=== PATIENT | female | born 1945 | race American Indian/Alaskan Native ===

== ENCOUNTER 2019-09-25 06:01 | Emergency (ER) | payer MEDICARE ==
[2019-09-25 06:12] VITALS: BP 165/64
--- NOTE | 2019-09-25 06:55 | Emergency Department Report ---
ED General Adult HPI - General Chief complaint: Fall Stated complaint: FALL/LIP LAC Time Seen by Provider: 09/25/19 06:40 Source: patient, family Mode of arrival: Ambulatory Limitations: Physical Limitation - History of Present Illness Initial comments: This is a 74-year-old female type II diabetic who slipped and fell on the way to the bathroom. She essentially bit her upper lip when she fell. She rinsed it out with Listerine. She states that her hand on the right is a bit sore area in however she denies any other injury. She denies neck or back pain. She denies being dizzy, near syncope or passing out. She describes a simple mechanical slip and fall. She did not yet check her sugar this morning. -: Gradual Location: mouth, right, upper extremity Associated Symptoms: denies other symptoms - Related Data Home Medications Medication Instructions Recorded Confirmed Last Taken Ergocalciferol (Vitamin D2) 1,000 unit PO BID 12/14/14 12/14/14 12/14/14 [Vitamin D2] Insulin NPH Human Isophane 15 unit SQ QAM 12/14/14 12/14/14 12/14/14 [HumuLIN N] Insulin NPH Human Isophane 20 unit SQ QPM 12/14/14 12/14/14 12/13/14 [HumuLIN N] Lisinopril [Zestril TAB] 40 mg PO QDAY 12/14/14 12/14/14 12/14/14 Potassium Chloride [K-Dur] 10 meq PO QDAY 12/14/14 12/14/14 12/14/14 cloNIDine [Catapres] 0.2 mg PO BID 12/14/14 12/14/14 12/14/14 tiZANidine [Zanaflex 4mg TAB] 4 mg PO QDAY PRN 12/14/14 12/14/14 Unknown Previous Rx's Medication Instructions Recorded Last Taken Type Aspirin [Aspirin BABY CHEW TAB] 81 mg PO QDAY #30 tab.chew 12/17/14 Unknown Rx Atorvastatin [Lipitor] 40 mg PO QHS #30 tab 12/17/14 Unknown Rx Clopidogrel [Plavix] 75 mg PO QDAY #30 tablet 12/17/14 Unknown Rx Penicillin V Potassium 500 mg PO TID #14 tablet 09/25/19 Unknown Rx Allergies Allergy/AdvReac Type Severity Reaction Status Date / Time No Known Allergies Allergy Unverified 12/14/14 15:08 ED Review of Systems ROS: Stated complaint: FALL/LIP LAC Other details as noted in HPI Constitutional: denies: chills, fever Eyes: denies: eye pain, eye discharge, vision change ENT: as per HPI. denies: ear pain, throat pain Respiratory: denies: cough, shortness of breath, wheezing Cardiovascular: denies: chest pain, palpitations Endocrine: no symptoms reported Gastrointestinal: denies: abdominal pain, nausea, diarrhea Genitourinary: denies: urgency, dysuria, discharge Musculoskeletal: denies: back pain, joint swelling, arthralgia Skin: denies: rash, lesions Neurological: denies: headache, weakness, paresthesias Psychiatric: denies: anxiety, depression Hematological/Lymphatic: denies: easy bleeding, easy bruising ED Past Medical Hx - Past Medical History Previous Medical History?: Yes Hx Hypertension: Yes Hx Diabetes: Yes Hx Renal Disease: Yes (stage 3/no dialysis) Additional medical history: Sinus bradycardia (heart rate normally in 40s) - Surgical History Past Surgical History?: Yes Additional Surgical History: partial hysterectomy, - Social History Smoking Status: Never Smoker Substance Use Type: None - Medications Home Medications: Home Medications Medication Instructions Recorded Confirmed Last Taken Type Ergocalciferol (Vitamin D2) 1,000 unit PO BID 12/14/14 12/14/14 12/14/14 History [Vitamin D2] Insulin NPH Human Isophane 15 unit SQ QAM 12/14/14 12/14/14 12/14/14 History [HumuLIN N] Insulin NPH Human Isophane 20 unit SQ QPM 12/14/14 12/14/14 12/13/14 History [HumuLIN N] Lisinopril [Zestril TAB] 40 mg PO QDAY 12/14/14 12/14/14 12/14/14 History Potassium Chloride [K-Dur] 10 meq PO QDAY 12/14/14 12/14/14 12/14/14 History cloNIDine [Catapres] 0.2 mg PO BID 12/14/14 12/14/14 12/14/14 History tiZANidine [Zanaflex 4mg TAB] 4 mg PO QDAY PRN 12/14/14 12/14/14 Unknown History Aspirin [Aspirin BABY CHEW TAB] 81 mg PO QDAY #30 tab.chew 12/17/14 Unknown Rx Atorvastatin [Lipitor] 40 mg PO QHS #30 tab 12/17/14 Unknown Rx Clopidogrel [Plavix] 75 mg PO QDAY #30 tablet 12/17/14 Unknown Rx Penicillin V Potassium 500 mg PO TID #14 tablet 09/25/19 Unknown Rx ED Physical Exam - General General appearance: alert, in no apparent distress - Head Head exam: Present: atraumatic, normocephalic - Eye Eye exam: Present: normal appearance - ENT ENT exam: Present: mucous membranes moist, other (puncture wound and abrasion of the upper lip into SQ. Clean) - Neck Neck exam: Present: normal inspection, full ROM. Absent: tenderness, meningismus, lymphadenopathy, thyromegaly - Respiratory Respiratory exam: Present: normal lung sounds bilaterally. Absent: respiratory distress - Cardiovascular Cardiovascular Exam: Present: regular rate, normal rhythm. Absent: systolic murmur, diastolic murmur, rubs, gallop - GI/Abdominal GI/Abdominal exam: Present: soft, normal bowel sounds. Absent: distended, tenderness, guarding, rebound, rigid - Extremities Exam Extremities exam: Present: normal inspection, full ROM, normal capillary refill, other (full range of motion of the right hand no soft tissue swelling no deformity). Absent: tenderness, pedal edema, joint swelling, calf tenderness - Back Exam Back exam: Present: normal inspection. Absent: tenderness, CVA tenderness (R), CVA tenderness (L), muscle spasm, paraspinal tenderness, vertebral tenderness - Neurological Exam Neurological exam: Present: alert, oriented X3, CN II-XII intact. Absent: motor sensory deficit - Psychiatric Psychiatric exam: Present: normal affect, normal mood - Skin Skin exam: Present: warm, dry, intact, normal color. Absent: rash ED Course Vital Signs 09/25/19 09/25/19 06:06 06:42 Temperature 99.0 F Pulse Rate 68 Respiratory 18 16 Rate Blood Pressure 165/64 O2 Sat by Pulse 100 Oximetry - Reevaluation(s) Reevaluation #1: Accu-Chek noted 09/25/19 07:04 Critical care attestation.: If time is entered above; I have spent that time in minutes in the direct care of this critically ill patient, excluding procedure time. ED Disposition Clinical Impression: Puncture wound of lip Qualifiers: Encounter type: initial encounter Qualified Code(s): S01.531A - Puncture wound without foreign body of lip, initial encounter Soft tissue injury of right hand Qualifiers: Encounter type: initial encounter Qualified Code(s): S69.91XA - Unspecified injury of right wrist, hand and finger(s), initial encounter Fall Qualifiers: Encounter type: initial encounter Qualified Code(s): W19.XXXA - Unspecified fall, initial encounter Disposition: TO HOME OR SELFCARE Is pt being admited?: No Does the pt Need Aspirin: No Condition: Stable Instructions: Puncture Wound (ED) Additional Instructions: Saltwater rinses lip wound. Rx penicillin. Follow-up with primary care physician. Return if any further problem. Prescriptions: Penicillin V Potassium 500 mg PO TID #14 tablet Referrals: usual, primary care [Other] - 3-5 Days Time of Disposition: 07:04
== END 2019-09-25 07:40 | disposition home or self-care (01) ==
LOC: ED 06:01
DX: S01.531A Puncture wound without foreign body of lip, initial encounter (principal); S69.91XA Unspecified injury of right wrist, hand and finger(s), initial encounter; E11.22 Type 2 diabetes mellitus with diabetic chronic kidney disease; I12.9 Hypertensive chronic kidney disease with stage 1 through stage 4 chronic kidney disease, or unspecified chronic kidney disease; N18.3 Chronic kidney disease, stage 3 (moderate); W18.30XA Fall on same level, unspecified, initial encounter; Y93.89 Activity, other specified; Y92.89 Other specified places as the place of occurrence of the external cause; Y99.8 Other external cause status
CPT/HCPCS: 82962; 99282

== ENCOUNTER 2020-10-06 23:22 | Observation (INO) | payer OTHER, MEDICARE ==
[2020-10-07] MEDS ORDERED: ASPIRIN 325 MG TAB PO ONE (01:58)
--- NOTE | 2020-10-07 02:33 | XRay Report ---
CHEST 1 VIEW 0227 INDICATION / CLINICAL INFORMATION: Chest Pain COMPARISON: 12/14/2014 FINDINGS: SUPPORT DEVICES: None HEART / MEDIASTINUM: No significant abnormality. LUNGS / PLEURA: No significant pulmonary or pleural abnormality. No pneumothorax. ADDITIONAL FINDINGS: No significant additional findings. IMPRESSION: No significant acute abnormality Signer Name: Galo Bagley MD Signed: 10/07/2020 2:29 AM Workstation Name: [id number]
[2020-10-07 02:48] LABS: Basophils % (Auto) 0.8 % (0.0-1.8); Eosinophils # (Auto) 0.1 K/mm3 (0.0-0.4); Hematocrit 35.7 % (30.3-42.9); Hemoglobin 11.4 gm/dl (10.1-14.3); Lymphocytes # (Auto) 1.3 K/mm3 (1.2-5.4); Lymphocytes % (Auto) 31.4 % (13.4-35.0); Mean Corpuscular HGB Conc 32 % (30-34); Monocytes # (Auto) 0.5 K/mm3 (0.0-0.8); Monocytes % (Auto) 11.5 % (0.0-7.3); Platelet Count 190 K/mm3 (140-440); Red Blood Count 5.14 M/mm3 (3.65-5.03); Red Cell Distribution Width 15.4 % (13.2-15.2)
[2020-10-07 02:51] LABS: Mean Corpuscular Volume 70 fl (79-97)
[2020-10-07] MEDS ORDERED: NITROGLYCERIN 0.4 MG TAB SUBL SL ONE (02:53)
--- NOTE | 2020-10-07 02:55 | Emergency Department Report ---
ED Chest Pain HPI - General Chief Complaint: Chest Pain Stated Complaint: CHEST PAIN WITH HYPERTENSION Time Seen by Provider: 10/07/20 02:31 Source: patient, EMS Mode of arrival: Stretcher Limitations: No Limitations - History of Present Illness Initial Comments: This is a 75-year-old -M[place] female presents to the emergency department via EMS from home with complaint of midsternal, nonradiating, chest pain that has been going on intermittently over the past "couple of days." The patient says that she finally "listen to my sister" and came in for evaluation. She denies any shortness of breath, nausea, vomiting, fever, diaphoresis. She has not taken anything, nor receive anything, for her symptoms prior to presentation. She has a past medical history of hypertension, insulin-dependent diabetes, chronic kidney disease, and a history of bradycardia. She has a primary care physician but has not seen them regarding her symptoms and cannot currently remember their name. 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 She denies any tobacco or illicit drug use. No recent travel or sick contacts at home. No known aggravating or alleviating factors. The patient's chest pain is currently listed as 8 out of 10 in intensity. - Related Data Home Medications Medication Instructions Recorded Confirmed Last Taken Ergocalciferol (Vitamin D2) 1,000 unit PO BID 12/14/14 12/14/14 12/14/14 [Vitamin D2] Insulin NPH Human Isophane 15 unit SQ QAM 12/14/14 12/14/14 12/14/14 [HumuLIN N] Insulin NPH Human Isophane 20 unit SQ QPM 12/14/14 12/14/14 12/13/14 [HumuLIN N] Potassium Chloride [K-Dur] 10 meq PO QDAY 12/14/14 12/14/14 12/14/14 cloNIDine [Catapres] 0.2 mg PO BID 12/14/14 12/14/14 12/14/14 lisinopriL [Zestril TAB] 40 mg PO QDAY 12/14/14 12/14/14 12/14/14 tiZANidine [Zanaflex 4mg TAB] 4 mg PO QDAY PRN 12/14/14 12/14/14 Unknown Previous Rx's Medication Instructions Recorded Last Taken Type Aspirin [Aspirin BABY CHEW TAB] 81 mg PO QDAY #30 tab.chew 12/17/14 Unknown Rx Atorvastatin [Lipitor] 40 mg PO QHS #30 tab 12/17/14 Unknown Rx Clopidogrel [Plavix] 75 mg PO QDAY #30 tablet 12/17/14 Unknown Rx Penicillin V Potassium 500 mg PO TID #14 tablet 09/25/19 Unknown Rx Allergies Allergy/AdvReac Type Severity Reaction Status Date / Time No Known Allergies Allergy Unverified 12/14/14 15:08 Heart Score - HEART Score History: Slightly suspicious EKG: Normal Age: > 65 Risk factors: > 3 risk factors or hx of atherosclerotic disease Troponin: < normal limit HEART Score: 4 - Critical Actions Critical Actions: 0-3 pts:0.9-1.7%risk of adverse cardiac event.Candidate for discharge ED Review of Systems ROS: Stated complaint: CHEST PAIN WITH HYPERTENSION Other details as noted in HPI Comment: All other systems reviewed and negative Constitutional: denies: chills, fever Eyes: denies: eye pain, vision change ENT: denies: ear pain, throat pain Respiratory: denies: cough, shortness of breath Cardiovascular: chest pain. denies: palpitations Gastrointestinal: denies: abdominal pain, vomiting Genitourinary: denies: dysuria, discharge Musculoskeletal: denies: joint swelling, arthralgia Skin: denies: rash, lesions Neurological: denies: headache, weakness ED Past Medical Hx - Past Medical History Previous Medical History?: Yes Hx Hypertension: Yes Hx Diabetes: Yes Hx Renal Disease: Yes (stage 3/no dialysis) Additional medical history: Sinus bradycardia (heart rate normally in 40s) - Surgical History Past Surgical History?: Yes Additional Surgical History: partial hysterectomy, - Social History Smoking Status: Never Smoker - Medications Home Medications: Home Medications Medication Instructions Recorded Confirmed Last Taken Type Ergocalciferol (Vitamin D2) 1,000 unit PO BID 12/14/14 12/14/14 12/14/14 History [Vitamin D2] Insulin NPH Human Isophane 15 unit SQ QAM 12/14/14 12/14/14 12/14/14 History [HumuLIN N] Insulin NPH Human Isophane 20 unit SQ QPM 12/14/14 12/14/14 12/13/14 History [HumuLIN N] Potassium Chloride [K-Dur] 10 meq PO QDAY 12/14/14 12/14/14 12/14/14 History cloNIDine [Catapres] 0.2 mg PO BID 12/14/14 12/14/14 12/14/14 History lisinopriL [Zestril TAB] 40 mg PO QDAY 12/14/14 12/14/14 12/14/14 History tiZANidine [Zanaflex 4mg TAB] 4 mg PO QDAY PRN 12/14/14 12/14/14 Unknown History Aspirin [Aspirin BABY CHEW TAB] 81 mg PO QDAY #30 tab.chew 12/17/14 Unknown Rx Atorvastatin [Lipitor] 40 mg PO QHS #30 tab 12/17/14 Unknown Rx Clopidogrel [Plavix] 75 mg PO QDAY #30 tablet 12/17/14 Unknown Rx Penicillin V Potassium 500 mg PO TID #14 tablet 09/25/19 Unknown Rx ED Physical Exam - General Limitations: No Limitations - Other Other exam information: GENERAL: The patient is well-developed well-nourished. HENT: Normocephalic. Atraumatic. Patient has moist mucous membranes. EYES: Extraocular motions are intact. NECK: Supple. Trachea is midline. CHEST/LUNGS: Clear to auscultation. There is no respiratory distress noted. HEART/CARDIOVASCULAR: Regular. There is mild bradycardia. There is no murmur. ABDOMEN: Abdomen is soft, nontender. Patient has normal bowel sounds. SKIN: Skin is warm and dry. NEURO: The patient is awake, alert, and oriented. The patient is cooperative. The patient has no focal neurologic deficits. Normal speech. MUSCULOSKELETAL: There is no tenderness or deformity. There is no limitation range of motion. ED Course Vital Signs 10/07/20 10/07/20 10/07/20 01:54 03:14 03:28 Temperature 98.2 F Pulse Rate 58 L 54 L Respiratory 20 20 Rate Blood Pressure 250/142 212/89 Blood Pressure [Left] O2 Sat by Pulse 98 Oximetry 10/07/20 10/07/20 10/07/20 03:29 03:30 03:46 Temperature 98.1 F Pulse Rate 52 L 52 L 53 L Respiratory 14 23 13 Rate Blood Pressure 200/83 207/80 Blood Pressure 200/83 [Left] O2 Sat by Pulse 100 99 100 Oximetry 10/07/20 10/07/20 03:59 04:00 Temperature Pulse Rate 49 L 49 L Respiratory 18 Rate Blood Pressure 207/80 202/81 Blood Pressure [Left] O2 Sat by Pulse 100 Oximetry ELLIE score - Ellie Score Age > 65: (1) Yes Aspirin use within the Past 7 Days: (1) Yes 3 or more CAD Risk Factors: (1) Yes 2 or more Angina events in past 24 hrs: (1) Yes Known CAD with more than 50% Stenosis: (0) No Elevated Cardiac Markers: (0) No ST Deviation Greater than 0.5mm: (0) No ELLIE Score: 4 ED Medical Decision Making - Lab Data Result diagrams: 10/07/20 02:04 10/07/20 02:04 Lab Results 10/07/20 10/07/20 Range/Units 02:04 02:04 WBC 4.1 L (4.5-11.0) K/mm3 RBC 5.14 H (3.65-5.03) M/mm3 Hgb 11.4 (10.1-14.3) gm/dl Hct 35.7 (30.3-42.9) % MCV 70 L (79-97) fl MCH 22 L (28-32) pg MCHC 32 (30-34) % RDW 15.4 H (13.2-15.2) % Plt Count 190 (140-440) K/mm3 Lymph % (Auto) 31.4 (13.4-35.0) % [place] % (Auto) 11.5 H (0.0-7.3) % Eos % (Auto) 3.0 (0.0-4.3) % Baso % (Auto) 0.8 (0.0-1.8) % Lymph # (Auto) 1.3 (1.2-5.4) K/mm3 [place] # (Auto) 0.5 (0.0-0.8) K/mm3 Eos # (Auto) 0.1 (0.0-0.4) K/mm3 Baso # (Auto) 0.0 (0.0-0.1) K/mm3 Seg Neutrophils % 53.3 (40.0-70.0) % Seg Neutrophils # 2.2 (1.8-7.7) K/mm3 Sodium 139 (137-145) mmol/L Potassium 4.8 (3.6-5.0) mmol/L Chloride 103.3 (98-107) mmol/L Carbon Dioxide 26 (22-30) mmol/L Anion Gap 15 mmol/L BUN 24 H (7-17) mg/dL Creatinine 1.0 (0.6-1.2) mg/dL Estimated GFR > 60 ml/min BUN/Creatinine Ratio 24 % Glucose 189 H (65-100) mg/dL Calcium 9.4 (8.4-10.2) mg/dL Troponin T < 0.010 (0.00-0.029) ng/mL - EKG Data -: EKG Interpreted by Me EKG shows normal: sinus rhythm, axis, intervals (Prolonged NV interval), QRS complexes (Low voltage), ST-T waves Rate: bradycardia (54 bpm) - EKG Data When compared to previous EKG there are: no significant change Interpretation: unchanged when compared t (12/18/14) - Radiology Data Radiology results: image reviewed interpreted by me: Chest x-ray does not show any acute process. There are no pleural effusions, obvious pneumonia and there is no pneumothorax. No significant cardiomegaly. - Medical Decision Making This patient presents with the complaint of some intermittent midsternal to left-sided chest pain over the past 2 days. EKG shows low voltage QRS and prolonged NV interval, but otherwise no morphology consistent with ST elevation myocardial infarction. Chest x-ray does not show any pneumonia, pleural effusions, pneumothorax, or any other acute process. Labs have been mostly unremarkable including CBC, metabolic panel and a negative troponin x1 thus far. Patient does present with extremely elevated blood pressure. She has been given sublingual nitroglycerin, IV hydralazine, and IV analgesia and the blood pressure has come down to a more reasonable level. She has a moderate heart and ELLIE score. She will be admitted to the hospital for further evaluation and treatment was accepted for admission by the hospitalist, Dr. Eldridge. Critical Care Time: No Critical care attestation.: If time is entered above; I have spent that time in minutes in the direct care of this critically ill patient, excluding procedure time. ED Disposition Clinical Impression: Hypertensive urgency, Acute chest pain Disposition: OP ADMIT IP TO THIS HOSP Is pt being admited?: Yes Condition: Serious Instructions: Chest Pain (ED) Time of Disposition: 03:51
[2020-10-07 02:58] LABS: Calcium 9.4 mg/dL (8.4-10.2); Hemolysis Index 3
[2020-10-07 03:05] LABS: BUN/Creatinine Ratio 24; Blood Urea Nitrogen 24 mg/dL (7-17)
[2020-10-07] MEDS ORDERED: MORPHINE 4 MG/1 ML INJ IV ONE (03:41)
[2020-10-07] MEDS ORDERED: hydrALAZINE 20 MG/1 ML INJ IV ONE (03:41)
[2020-10-07] MEDS ORDERED: ONDANSETRON 4 MG/2 ML INJ IV PRN (04:07)
[2020-10-07] MEDS ORDERED: ACETAMINOPHEN 325 MG TAB PO PRN ×2 (04:07)
[2020-10-07] MEDS ORDERED: DEXTROSE 50% IN WATER (25GM) 50 ML SYRINGE IV PRN (04:07)
[2020-10-07] MEDS ORDERED: NITROGLYCERIN 0.4 MG TAB SUBL SL PRN (04:07)
[2020-10-07] MEDS ORDERED: MORPHINE 2 MG/1 ML INJ IV PRN (04:07)
--- NOTE | 2020-10-07 04:23 | History and Physical Report ---
History of Present Illness Date of examination: 10/07/20 Date of admission: 10/07/2020 Chief complaint: Chest Pain History of present illness: 75-year-old -[place] female with known history of chronic kidney disease,, sinus bradycardia, diabetes mellitus and hypertension presenting to the emergency room today via EMS complaining of chest pain which has been ongoing for the past few days.. Chest pain is said to be midsternal and nonradiating. Patient denies any shortness of breath, no fever or chills, no nausea vomiting and no diaphoresis. There is no known relieving or exacerbating factor for chest pain. Patient denies any sick contacts and no recent travel. Denies any contact with anyone with COVID-19. Patient had a cardiac cath sometime in 2014 but has not followed up with any nursing service administrator. She was evaluated by Dr. Light- [employer] during her visit 5 years ago. She has not followed up with any nursing service administrator lately. Upon arrival in the emergency room today blood pressure was elevated with systolic in the 250s and diastolic in the 140s. She was given some antihypertensive medication in the emergency room with significant improvement in her blood pressure. Patient benign admitted to be evaluated for chest pain and hypertensive urgency. Past History Past Medical History: diabetes, hypertension, renal failure, other (Sinus bradycardia,) Past Surgical History: hysterectomy (Partial hysterectomy) Social history: no significant social history Family history: no significant family history Medications and Allergies Allergies Allergy/AdvReac Type Severity Reaction Status Date / Time No Known Allergies Allergy Unverified 12/14/14 15:08 Home Medications Medication Instructions Recorded Confirmed Last Taken Type Ergocalciferol (Vitamin D2) 1,000 unit PO BID 12/14/14 12/14/14 12/14/14 History [Vitamin D2] Insulin NPH Human Isophane 15 unit SQ QAM 12/14/14 12/14/14 12/14/14 History [HumuLIN N] Insulin NPH Human Isophane 20 unit SQ QPM 12/14/14 12/14/14 12/13/14 History [HumuLIN N] Potassium Chloride [K-Dur] 10 meq PO QDAY 12/14/14 12/14/14 12/14/14 History cloNIDine [Catapres] 0.2 mg PO BID 03/06/15 03/06/15 03/06/15 History lisinopriL [Zestril TAB] 40 mg PO QDAY 12/14/14 12/14/14 12/14/14 History tiZANidine [Zanaflex 4mg TAB] 4 mg PO QDAY PRN 12/14/14 12/14/14 Unknown History Aspirin [Aspirin BABY CHEW TAB] 81 mg PO QDAY #30 tab.chew 12/17/14 Unknown Rx Atorvastatin [Lipitor] 40 mg PO QHS #30 tab 12/17/14 Unknown Rx Clopidogrel [Plavix] 75 mg PO QDAY #30 tablet 12/17/14 Unknown Rx Penicillin V Potassium 500 mg PO TID #14 tablet 09/25/19 Unknown Rx Active Meds: Active Medications Acetaminophen (Acetaminophen 325 Mg Tab) 650 mg PO Q4H PRN PRN Reason: Pain MILD(1-3)/Fever >100.5/STEELE Acetaminophen (Acetaminophen 325 Mg Tab) 650 mg PO Q6H PRN PRN Reason: Pain, Mild (1-3) Aspirin (Aspirin Ec 325 Mg Tab) 325 mg PO QDAY JOSE Dextrose (Dextrose 50% In Water (25gm) 50 Ml Syringe) 50 ml IV Q30MIN PRN; Protocol PRN Reason: Hypoglycemia Dextrose (Dextrose 50% In Water (25gm) 50 Ml Syringe) 50 ml IV Q30MIN PRN; Protocol PRN Reason: Hypoglycemia Insulin Human Lispro (Insulin Lispro 100 Unit/Ml Vial 3 Ml) 0 unit SUB-Q ACHS JOSE; Protocol Morphine Sulfate (Morphine 4 Mg/1 Ml Inj) 2 mg IV Q5MIN PRN PRN Reason: Chest Pain Nitroglycerin (Nitroglycerin 0.4 Mg Tab Subl) 0.4 mg SL Q5M PRN PRN Reason: Chest Pain Ondansetron HCl (Ondansetron 4 Mg/2 Ml Inj) 4 mg IV Q8H PRN PRN Reason: Nausea And Vomiting Sodium Chloride (Sodium Chloride 0.9% 10 Ml Flush Syringe) 10 ml IV BID JOSE Sodium Chloride (Sodium Chloride 0.9% 10 Ml Flush Syringe) 10 ml IV PRN PRN PRN Reason: LINE FLUSH Sodium Chloride (Sodium Chloride 0.9% 10 Ml Flush Syringe) 10 ml IV PRN PRN PRN Reason: LINE FLUSH Review of Systems Constitutional: no fever, no chills Ears, nose, mouth and throat: no nasal congestion, no sore throat Cardiovascular: chest pain, no palpitations Respiratory: no cough, no shortness of breath Gastrointestinal: no abdominal pain, no nausea, no vomiting, no diarrhea Genitourinary Female: no pelvic pain, no flank pain, no dysuria Musculoskeletal: no neck pain, no low back pain Integumentary: no rash, no pruritis Neurological: no headaches, no confusion Psychiatric: no anxiety, no depression Exam - Constitutional Vitals: Temp Pulse Resp BP Pulse Ox 98.1 F 60 18 156/64 100 10/07/20 03:29 10/07/20 04:17 10/07/20 04:17 10/07/20 04:17 10/07/20 04:17 General appearance: Present: no acute distress, well-nourished - EENT Eyes: Present: PERRL, EOM intact. Absent: scleral icterus ENT: hearing intact, clear oral mucosa, dentition normal - Neck Neck: Present: supple, normal ROM - Respiratory Respiratory effort: normal Respiratory: bilateral: CTA - Cardiovascular Rhythm: regular Heart Sounds: Present: S1 & S2. Absent: systolic murmur, diastolic murmur - Extremities Extremities: no ischemia, pulses intact, pulses symmetrical, No edema, normal temperature, normal color, Full ROM Peripheral Pulses: within normal limits - Abdominal General gastrointestinal: Present: soft, non-tender, non-distended, normal bowel sounds. Absent: mass - Integumentary Integumentary: Present: clear, warm, dry. Absent: rash - Musculoskeletal Musculoskeletal: strength equal bilaterally - Psychiatric Psychiatric: appropriate mood/affect, intact judgment & insight, memory intact, cooperative - Neurologic Neurologic: CNII-XII intact, no focal deficits, moves all extremities HEART Score - HEART Score EKG: Normal Age: > 65 Risk factors: > 3 risk factors or hx of atherosclerotic disease Troponin: Troponin T < 0.010 ng/mL (0.00-0.029) 10/07/20 02:04 Troponin: < normal limit - Critical Actions Critical Actions: 0-3 pts:0.9-1.7%risk of adverse cardiac event.Candidate for discharge Results - Labs CBC & Chem 7: 10/07/20 05:16 10/07/20 05:16 Labs: Abnormal lab results 10/07/20 10/07/20 Range/Units 02:04 02:04 WBC 4.1 L (4.5-11.0) K/mm3 RBC 5.14 H (3.65-5.03) M/mm3 MCV 70 L (79-97) fl MCH 22 L (28-32) pg RDW 15.4 H (13.2-15.2) % [place] % (Auto) 11.5 H (0.0-7.3) % BUN 24 H (7-17) mg/dL Glucose 189 H (65-100) mg/dL Assessment and Plan - Patient Problems (1) Acute chest pain Current Visit: Yes Status: Acute Plan to address problem: Patient admitted and placed on telemetry. Will check serial cardiac enzymes. Will place on aspirin, sublingual nitroglycerin and IV morphine as needed for chest pain. We will place consult for cardiology evaluation. Patient seen by [place] heart team during her previous visit. (2) Hypertensive urgency Current Visit: Yes Status: Acute Plan to address problem: We will resume patient's routine home medications once reconciled and monitor vital signs closely. (3) Diabetes mellitus Current Visit: No Status: Chronic Plan to address problem: We will monitor Accu-Cheks closely. (4) DVT prophylaxis Current Visit: No Status: Acute Plan to address problem: Patient placed on subcutaneous Lovenox. (5) Full code status Current Visit: Yes Status: Acute Plan to address problem: Patient is a full code.
[2020-10-07 05:58] LABS: Basophils % (Auto) 0.6 % (0.0-1.8); Eosinophils # (Auto) 0.1 K/mm3 (0.0-0.4); Eosinophils % (Auto) 2.9 % (0.0-4.3); Hematocrit 35.6 % (30.3-42.9); Hemoglobin 11.6 gm/dl (10.1-14.3); Lymphocytes # (Auto) 1.5 K/mm3 (1.2-5.4); Lymphocytes % (Auto) 32.6 % (13.4-35.0); Mean Corpuscular HGB Conc 33 % (30-34); Monocytes # (Auto) 0.5 K/mm3 (0.0-0.8); Monocytes % (Auto) 10.3 % (0.0-7.3); Platelet Count 187 K/mm3 (140-440); Red Blood Count 5.16 M/mm3 (3.65-5.03); Red Cell Distribution Width 15.7 % (13.2-15.2)
[2020-10-07 06:09] LABS: Mean Corpuscular Volume 69 fl (79-97)
[2020-10-07 06:12] LABS: BUN/Creatinine Ratio 23; Blood Urea Nitrogen 23 mg/dL (7-17); Calcium 9.5 mg/dL (8.4-10.2); Hemolysis Index 1
[2020-10-07 06:15] LABS: Chol/HDL Ratio 5.5 %
[2020-10-07] MEDS ORDERED: REGADENOSON 0.4 MG/5 ML INJ IV ONE (07:55)
[2020-10-07] MEDS ORDERED: tiZANidine TAB 4 MG TAB PO PRN (08:49)
[2020-10-07] MEDS: INSULIN LISPRO 100 UNIT/ML VIAL 3 mL SUB-Q SCH ×4 (08:56→22:14)
[2020-10-07] MEDS ORDERED: LISINOPRIL 40 MG TAB PO SCH (10:00)
[2020-10-07] MEDS ORDERED: cloNIDine 0.2 MG TAB PO SCH (10:00)
--- NOTE | 2020-10-07 12:22 | Consultation ---
History of Present Illness Consult date: 10/07/20 Consult reason: chest pain History of present illness: Patient is a 75-year-old woman with a history of hypertension, who presents to the hospital with uncontrolled hypertension and asymptomatic, poorly characterized nonexertional chest pain. Her blood pressure was 250 systolic on presentation. Cardiology consultation was requested for chest pain assessment. It will be noted that the patient has undergone extensive previous cardiac ischemic work-up including a cardiac catheterization 4 years ago that demonstrated mild nonobstructive atherosclerosis, normal left ventricular ejection fraction of 70%. EKG is a sinus bradycardia 54, nonspecific T wave flattening, no acute ischemic changes. Today, she underwent a Lexiscan thallium stress test ordered by the medical service, that showed normal myocardial perfusion, left ventricular ejection fraction 69%. Past History Past Medical History: diabetes, hypertension, renal failure Past Surgical History: hysterectomy (Partial hysterectomy) Social history: no significant social history Family history: no significant family history Medications and Allergies Allergies Allergy/AdvReac Type Severity Reaction Status Date / Time No Known Allergies Allergy Unverified 12/14/14 15:08 Home Medications Medication Instructions Recorded Confirmed Last Taken Type Ergocalciferol (Vitamin D2) 1,000 unit PO BID 12/14/14 12/14/14 12/14/14 History [Vitamin D2] Insulin NPH Human Isophane 15 unit SQ QAM 12/14/14 12/14/14 12/14/14 History [HumuLIN N] Insulin NPH Human Isophane 20 unit SQ QPM 12/14/14 12/14/14 12/13/14 History [HumuLIN N] Potassium Chloride [K-Dur] 10 meq PO QDAY 12/14/14 12/14/14 12/14/14 History cloNIDine [Catapres] 0.2 mg PO BID 12/14/14 12/14/14 12/14/14 History lisinopriL [Zestril TAB] 40 mg PO QDAY 12/14/14 12/14/14 12/14/14 History tiZANidine [Zanaflex 4mg TAB] 4 mg PO QDAY PRN 12/14/14 12/14/14 Unknown History Aspirin [Aspirin BABY CHEW TAB] 81 mg PO QDAY #30 tab.chew 12/17/14 Unknown Rx Atorvastatin [Lipitor] 40 mg PO QHS #30 tab 03/09/15 Unknown Rx Clopidogrel [Plavix] 75 mg PO QDAY #30 tablet 12/17/14 Unknown Rx Penicillin V Potassium 500 mg PO TID #14 tablet 09/25/19 Unknown Rx Active Meds: Active Medications Acetaminophen (Acetaminophen 325 Mg Tab) 650 mg PO Q4H PRN PRN Reason: Pain MILD(1-3)/Fever >100.5/STEELE Aspirin (Aspirin Ec 325 Mg Tab) 325 mg PO QDAY [facility] Atorvastatin Calcium (Atorvastatin 40 Mg Tab) 40 mg PO QHS [facility] Clonidine HCl (Clonidine 0.2 Mg Tab) 0.2 mg PO BID [facility] Clopidogrel Bisulfate (Clopidogrel 75 Mg Tab) 75 mg PO QDAY [facility] Dextrose (Dextrose 50% In Water (25gm) 50 Ml Syringe) 0 ml IV Q30MIN PRN; Protocol PRN Reason: Hypoglycemia Insulin Human Lispro (Insulin Lispro 100 Unit/Ml Vial 3 Ml) 0 unit SUB-Q ACHS [facility]; Protocol Last Admin: 10/07/20 08:56 Dose: Not Given Documented by: Lisinopril (Lisinopril 40 Mg Tab) 40 mg PO QDAY [facility] Morphine Sulfate (Morphine 2 Mg/1 Ml Inj) 2 mg IV Q5MIN PRN PRN Reason: Chest Pain Nitroglycerin (Nitroglycerin 0.4 Mg Tab Subl) 0.4 mg SL Q5M PRN PRN Reason: Chest Pain Ondansetron HCl (Ondansetron 4 Mg/2 Ml Inj) 4 mg IV Q8H PRN PRN Reason: Nausea And Vomiting Sodium Chloride (Sodium Chloride 0.9% 10 Ml Flush Syringe) 10 ml IV BID JOSE Sodium Chloride (Sodium Chloride 0.9% 10 Ml Flush Syringe) 10 ml IV PRN PRN PRN Reason: LINE FLUSH Tizanidine HCl (Tizanidine Tab 4 Mg Tab) 4 mg PO QDAY PRN PRN Reason: Muscle Spasm Review of Systems Cardiovascular: chest pain, no orthopnea, no palpitations, no rapid/irregular heart beat, no edema, no syncope, no lightheadedness, no shortness of breath Physical Examination Vital Signs Temp Pulse Resp BP Pulse Ox 98.2 F 58 L 20 250/142 98 10/07/20 01:54 10/07/20 01:54 10/07/20 01:54 10/07/20 01:54 10/07/20 01:54 General appearance: no acute distress HEENT: Positive: PERRL Neck: Positive: neck supple Cardiac: Positive: Reg Rate and Rhythm Lungs: Positive: clear to auscultation Neuro: Positive: Grossly Intact Abdomen: Positive: Soft Female genitourinary: deferred Skin: Positive: Clear Extremities: Absent: edema Results 10/07/20 05:16 10/07/20 05:16 Lipids 10/07/20 Range/Units 05:16 Triglycerides 260 H (2-149) mg/dL Cholesterol 286 H (50-199) mg/dL HDL Cholesterol 52 (40-59) mg/dL Cholesterol/HDL Ratio 5.50 % CBC 10/07/20 10/07/20 Range/Units 02:04 05:16 WBC 4.1 L 4.6 (4.5-11.0) K/mm3 RBC 5.14 H 5.16 H (3.65-5.03) M/mm3 Hgb 11.4 11.6 (10.1-14.3) gm/dl Hct 35.7 35.6 (30.3-42.9) % Plt Count 190 187 (140-440) K/mm3 Lymph # (Auto) 1.3 1.5 (1.2-5.4) K/mm3 [place] # (Auto) 0.5 0.5 (0.0-0.8) K/mm3 Eos # (Auto) 0.1 0.1 (0.0-0.4) K/mm3 Baso # (Auto) 0.0 0.0 (0.0-0.1) K/mm3 Comprehensive Metabolic Panel 10/07/20 10/07/20 Range/Units 02:04 05:16 Sodium 139 140 (137-145) mmol/L Potassium 4.8 3.8 D (3.6-5.0) mmol/L Chloride 103.3 104.5 (98-107) mmol/L Carbon Dioxide 26 28 (22-30) mmol/L BUN 24 H 23 H (7-17) mg/dL Creatinine 1.0 1.0 (0.6-1.2) mg/dL Glucose 189 H 123 H (65-100) mg/dL Calcium 9.4 9.5 (8.4-10.2) mg/dL EKG interpretations - Telemetry EKG Rhythm: Sinus Bradycardia Assessment and Plan - Patient Problems (1) Chest pain Current Visit: No Status: Acute Plan to address problem: Chest pain is atypical, she had a negative cardiac catheterization 4 years ago, underwent a Lexiscan thallium stress test today, normal myocardial perfusion. (2) Hypertensive urgency Current Visit: Yes Status: Acute Plan to address problem: We will optimize antihypertensive medical therapy and adjust medications as tolerated prior to discharge
[2020-10-07] MEDS ORDERED: LISINOPRIL 20 MG TAB ONE (13:54)
[2020-10-07] MEDS: CLOPIDOGREL 75 MG TAB PO SCH (15:03)
--- NOTE | 2020-10-07 20:18 | Event Note ---
Date: 10/07/20 Patient was admitted this morning with hypertensive urgency and chest pain Evaluated by cardiology, patient had negative stress test today We will closely monitor the patient and adjust the management as needed Possible discharge home tomorrow if stable and cleared by cardiology Plan of care reviewed with the patient and her nurse
--- NOTE | 2020-10-07 20:42 | Treadmill Report ---
THALLIUM STRESS TEST LEFT VENTRICLE: Left ventricular chamber size is within normal spread. Perfusion study demonstrates homogeneous uptake of the tracer in all segments, no defects identified. Gated analysis demonstrates normal left ventricular systolic function, ejection fraction of 69%. CONCLUSION: Normal myocardial perfusion study. JOB# [id number] CA/NTS
[2020-10-07] MEDS ORDERED: cloNIDine 0.1 MG TAB PO SCH (22:00)
[2020-10-07] MEDS ORDERED: INSULIN LISPRO 100 UNIT/ML SUB-Q ONE (22:00)
[2020-10-07] MEDS: hydrALAZINE 25 MG TAB PO SCH (22:12)
[2020-10-08] MEDS: hydrALAZINE 25 MG TAB PO SCH (06:01)
[2020-10-08 06:05] LABS: Basophils % (Auto) 0.4 % (0.0-1.8); Eosinophils # (Auto) 0.1 K/mm3 (0.0-0.4); Eosinophils % (Auto) 2.8 % (0.0-4.3); Hematocrit 32.9 % (30.3-42.9); Hemoglobin 10.5 gm/dl (10.1-14.3); Lymphocytes # (Auto) 1.5 K/mm3 (1.2-5.4); Lymphocytes % (Auto) 30.1 % (13.4-35.0); Mean Corpuscular HGB Conc 32 % (30-34); Monocytes # (Auto) 0.5 K/mm3 (0.0-0.8); Monocytes % (Auto) 10.7 % (0.0-7.3); Platelet Count 172 K/mm3 (140-440); Red Blood Count 4.79 M/mm3 (3.65-5.03); Red Cell Distribution Width 15.7 % (13.2-15.2)
[2020-10-08 06:10] LABS: Mean Corpuscular Volume 69 fl (79-97)
[2020-10-08 06:11] LABS: INR 1.1 (0.87-1.13)
[2020-10-08 06:16] LABS: Calcium 9.1 mg/dL (8.4-10.2)
[2020-10-08] MEDS: INSULIN LISPRO 100 UNIT/ML VIAL 3 mL SUB-Q SCH (07:30)
[2020-10-08] MEDS ORDERED: ASPIRIN EC 325 MG TAB PO SCH (10:00)
[2020-10-08] MEDS: CLOPIDOGREL 75 MG TAB PO SCH (10:20)
--- NOTE | 2020-10-08 10:58 | Discharge Summary ---
Providers - Providers Date of Admission: 10/07/20 03:51 Attending physician: BRANDON CALHOUN 10/07/20 Consult to Cardiac Rehabilitation [CONS] Routine Reason For Exam: Phase I 10/07/20 04:11 Consult to Cardiology [CONS] Routine Consulting Provider: JUSTINO GRIFFIN Reason For Exam: chest pain Consult to Dietitian/Nutrition [CONS] Routine Physician Instructions: Reason For Exam: Reason for Consult: Diet education Hospitalization Condition: Serious Hospital course: This is a 75-year-old -Russian female with chronic kidney disease, sinus bradycardia, diabetes mellitus and hypertension who presents to the emergency department on 10/07 with complaints of midsternal nonradiating chest pain which has been ongoing for the past few days prior to presentation without associated shortness of breath, nausea, vomiting or diaphoresis and no deviating or exacerbating factors. Patient had a cardiac catheterization in but has not followed up with a materials management clerk and she was last seen by Dr. Griffin 5 years ago. Upon arrival to the ED patient's blood pressure was noted to be in the 250s over 140s and she was given antihypertensives much improvement to her blood pressure. Patient was admitted to the hospital service for evaluation of her chest pain and hypertensive urgency. Cardiology was consulted. Patient underwent a thallium stress test on 10/07 which showed a normal myocardial perfusion study with ejection fraction of 69%. Her echocardiogram on 10/07 showed normal global left ventricular systolic function, estimated ejection fraction of 60 to 65% with mild concentric left ventricular hypertrophy and no significant MR and trace TR. On 10/08 she was noted to be bradycardic overnight and her antihypertensive regimen has been changed. She will need to follow-up with her primary care physician and cardiology within 1 to 2 weeks of discharge. (1) ACS Current Visit: Yes Status: ruled out Plan to address problem: -Patient underwent a thallium stress test on 10/07 which showed a normal myocardial perfusion study with ejection fraction of 69%. Her echocardiogram on 10/07 showed normal global left ventricular systolic function, estimated ejection fraction of 60 to 65% with mild concentric left ventricular hypertrophy and no significant MR and trace TR. -Continue current antihypertensive regimen -Cardiology consulted -Follow-up with cardiology within 1 to 2 weeks of discharge -Cardiac enzymes have been less than 0.01 -Continue aspirin and sublingual nitroglycerin as needed (2) Hypertensive urgency Current Visit: Yes Status: Acute Plan to address problem: -Presented with a blood pressure of 250/142 -S/p sublingual nitroglycerin, IV hydralazine and IV analgesics in the emergency department -Continue current antihypertensive regimen -Blood pressure monitoring per primary care physician instructions -Follow-up with cardiology and PCP within 1 to 2 weeks of discharge (3) Diabetes mellitus Current Visit: No Status: Chronic Plan to address problem: -Continue home antidiabetic regimen -Blood glucose monitoring per primary care physician instructions -Continue carb controlled cardiac diet. Disposition: DC-01 TO HOME OR SELFCARE Time spent for discharge: 35 Core Measure Documentation - Palliative Care Palliative Care/ Comfort Measures: Not Applicable - Core Measures Any of the following diagnoses?: history only Exam - Constitutional Vitals: Temp Pulse Resp BP Pulse Ox 98.1 F 48 L 18 126/53 97 10/08/20 08:16 10/08/20 08:16 10/08/20 08:16 10/08/20 08:16 10/08/20 08:16 General appearance: Present: no acute distress - EENT Eyes: Present: PERRL, EOM intact ENT: hearing decreased, poor dentition - Neck Neck: Present: normal ROM - Respiratory Respiratory effort: normal Respiratory: bilateral: CTA - Cardiovascular Rhythm: regular Heart Sounds: Present: S1 & S2. Absent: systolic murmur, diastolic murmur - Extremities Extremities: no ischemia, pulses intact, pulses symmetrical, No edema, normal t emperature, normal color, Full ROM Peripheral Pulses: within normal limits - Abdominal General gastrointestinal: Present: soft, non-tender, non-distended, normal bowel sounds - Integumentary Integumentary: Present: clear, warm, dry - Musculoskeletal Musculoskeletal: strength equal bilaterally - Psychiatric Psychiatric: appropriate mood/affect, cooperative - Neurologic Neurologic: CNII-XII intact, no focal deficits, moves all extremities - Allied Health Allied health notes reviewed: nursing Plan Activity: advance as tolerated Diet: low fat, low cholesterol, low salt, diabetic Special Instructions: record daily weights, record daily BP diary, record blood sugar diary Additional Instructions: Contact your primary care physician or present to nearest emergency department if experience worsening symptoms. Follow-up with your primary care physician and cardiology within 1 to 2 weeks of discharge. Follow up with: BELINDA DIAZ [Other] - 3-5 Days JAYDON GUO MD [Staff Physician] - 7 Days Prescriptions: hydrALAZINE [Apresoline TAB] 25 mg PO Q8HR #90 tablet Aspirin EC [Ecotrin] 325 mg PO QDAY #30 tablet Nitroglycerin [Nitrostat] 0.4 mg SL Q5M PRN #14 tablet PRN Reason: Chest Pain
--- NOTE | 2020-10-08 11:05 | Progress Note ---
Assessment and Plan Chest pain is atypical normal myocardial perfusion stress test this presentation negative cardiac catheterization in 2015 Hypertensive urgency Sinus bradycardia, asymptomatic now resolved after the discontinuation of high dose Clonidine 0.3 BID telemetry currently shows a heart rate of 70. Continue optimal medical therapy for hypertension. Otherwise, no further cardiac workup indicated. We will pursue a conservative cardiac management. Subjective Date of service: 10/08/20 Interval history: Patient is sitting up in the bedside chair. Denies chest pain and denies shortness of breath. Clonidine 0.3 mg BID discontinued overnight due to marked sinus bradycardia on telemetry, with heart rate ranging in the 40s. Patient remained asymptomatic. Telemetry currently shows sinus rhythm with heart rate of 70. Blood pressure is controlled, 126/53. Objective Vital Signs Temp Pulse Resp BP BP Pulse Ox 10/08/20 08:16 98.1 F 48 L 18 126/53 97 10/08/20 07:00 99 10/08/20 06:01 50 L 140/65 10/08/20 03:57 98.0 F 50 L 16 140/65 99 10/07/20 23:22 99.2 F 78 16 134/63 98 10/07/20 22:33 82 10/07/20 22:12 65 150/61 10/07/20 21:40 98.7 F 65 18 150/61 100 10/07/20 21:01 76 17 134/66 10/07/20 20:44 12 138/69 10/07/20 15:03 171/64 10/07/20 14:00 171/64 100 10/07/20 13:00 78 22 192/89 100 10/07/20 12:48 181/72 100 10/07/20 11:05 143/58 10/07/20 11:04 129/53 10/07/20 11:01 121/51 - Physical Examination General: No Apparent Distress HEENT: Positive: PERRL Neck: Positive: neck supple Cardiac: Positive: Reg Rate and Rhythm Lungs: Positive: Decreased Breath Sounds Neuro: Positive: Grossly Intact Abdomen: Positive: Soft Extremities: Absent: edema - Labs and Meds Coagulation 10/08/20 Range/Units 05:37 PT 14.1 (12.2-14.9) Sec. INR 1.10 (0.87-1.13) CBC 10/08/20 Range/Units 05:37 WBC 4.9 (4.5-11.0) K/mm3 RBC 4.79 (3.65-5.03) M/mm3 Hgb 10.5 (10.1-14.3) gm/dl Hct 32.9 (30.3-42.9) % Plt Count 172 (140-440) K/mm3 Lymph # (Auto) 1.5 (1.2-5.4) K/mm3 [place] # (Auto) 0.5 (0.0-0.8) K/mm3 Eos # (Auto) 0.1 (0.0-0.4) K/mm3 Baso # (Auto) 0.0 (0.0-0.1) K/mm3 Comprehensive Metabolic Panel 10/08/20 Range/Units 05:37 Sodium 138 (137-145) mmol/L Potassium 4.3 (3.6-5.0) mmol/L Chloride 105.3 (98-107) mmol/L Carbon Dioxide 24 (22-30) mmol/L BUN 28 H (7-17) mg/dL Creatinine 1.2 (0.6-1.2) mg/dL Glucose 129 H (65-100) mg/dL Calcium 9.1 (8.4-10.2) mg/dL
[2020-10-08 12:34] VITALS: BP 149/56
== END 2020-10-08 17:33 | disposition home or self-care (01) ==
LOC: ED 23:22 → CC1 10-07 03:51 → 4A 10-07 12:01
PROVIDERS: ADMIT Internal Medicine Geriatric Medicine; ATTEND Internal Medicine
DX: I16.0 Hypertensive urgency (principal); R07.89 Other chest pain; E11.9 Type 2 diabetes mellitus without complications; N19 Unspecified kidney failure; I24.9 Acute ischemic heart disease, unspecified; R00.1 Bradycardia, unspecified; Z90.710 Acquired absence of both cervix and uterus; Z79.4 Long term (current) use of insulin; Z79.82 Long term (current) use of aspirin
CPT/HCPCS: 36415; 71045; 78452; 80048; 80061; 82962; 84484; 85025; 85610; 93005; 93017; 93306; 96374; 96375; 99285; A9270; A9502; G0378; J0360; J2270; J2785; J1815